=== PATIENT | female | born 1960 | race Caucasian/White ===

== ENCOUNTER 2022-10-20 19:54 | Observation (INO) | payer BC, OTHER ==
[~2022-10-20] VITALS: Ht 157.5 cm; Wt 70.1 kg
[2022-10-20] MEDS ORDERED: TELM1TAB37 PO (20:16)
[2022-10-20] MEDS ORDERED: VIBE1TAB PO (20:16)
[2022-10-20] MEDS ORDERED: METO1TAB32 PO (20:17)
[2022-10-20] MEDS ORDERED: AMLO2.5T3 PO (20:17)
[2022-10-20 20:56] LABS: BASO % 0.3 % (0.0-1.0); EOS # 0.1 10^3/uL (0.0-0.5); EOS % 1.6 % (0.0-3.0); HEMATOCRIT 36.8 % (36.0-47.0); LYMPH % 32.1 % (24.0-44.0); MEAN CORPUSCULAR HGB CONC 32.6 g/dl (32.0-36.5); MEAN CORPUSCULAR VOLUME 98.1 fl (80.0-96.0); MONO # 0.5 10^3/uL (0.0-0.8); MONO % 7.6 % (2.0-8.0); NEUTROPHILS # 3.5 10^3/uL (1.5-8.5); NEUTROPHILS % 57.7 % (36.0-66.0); PLATELET COUNT, AUTOMATED 272 10^3/uL (150-450); RED BLOOD COUNT 3.75 10^6/uL (4.00-5.40); WHITE BLOOD COUNT 6.1 10^3/uL (4.0-10.0)
[2022-10-20 21:04] LABS: LIPASE 43 U/L (12-53)
[2022-10-20 21:06] LABS: ALKALINE PHOSPHATASE 90 U/L (46-116); ALT/SGPT 23 U/L (7.0-40); AST/SGOT 13 U/L (<34); BILIRUBIN,DIRECT < 0.1 MG/DL (<0.4); BILIRUBIN,TOTAL 0.2 MG/DL (0.3-1.2); TOTAL PROTEIN 6.5 G/DL (5.7-8.2)
[2022-10-20] MEDS ORDERED: ONDANSETRON 4MG 2ML VIAL IV ONE ×2 (21:10→22:55)
[2022-10-20] MEDS ORDERED: MORPHINE 2 MG/ML 1ML VIAL IV ONE (21:40)
[2022-10-20] MEDS ORDERED: METOCLOPRAMIDE INJ 10MG/2ML VIAL IV ONE (23:35)
[2022-10-21] VITALS (7 sets, daily range): BP systolic 116–172; BP diastolic 66–87; TEMP 96.8–98.7; O2SAT 94–96
[2022-10-21] MEDS ORDERED: MORPHINE 2 MG/ML 1ML VIAL IV ONE
[2022-10-21] MEDS ORDERED: ONDANSETRON 4MG 2ML VIAL IV PRN ×2 (00:55→17:45)
[2022-10-21] MEDS ORDERED: KETOROLAC 30 MG/ML 1ML VIAL IV PRN ×2 (00:55→06:55)
[2022-10-21] MEDS: NS 1,000 ML IV SCH ×2 (01:33→11:13)
[2022-10-21] MEDS ORDERED: TAMSULOSIN 0.4 MG CAP PO ONE (02:00)
[2022-10-21] MEDS: HYDROMORPHONE HCL 0.5 MG/ 0.5 ML SYRINGE IV PRN ×2 (02:39→06:03)
[2022-10-21] MEDS ORDERED: MED REC IN PROGRESS XX SCH (08:25)
[2022-10-21] MEDS ORDERED: MOME50SP2 (08:52)
[2022-10-21] MEDS ORDERED: CETI10CH PO (08:52)
[2022-10-21] MEDS ORDERED: MONT10TA97 PO (08:52)
[2022-10-21] MEDS ORDERED: AMLO1TAB24 PO (08:52)
[2022-10-21] MEDS ORDERED: VITA100093 PO (08:52)
[2022-10-21] MEDS ORDERED: CALCCAP4 PO (08:52)
[2022-10-21] MEDS ORDERED: [UNRECOGNIZED DRUG - OTHER] SL (08:52)
[2022-10-21] MEDS ORDERED: VALA1TAB5 PO (08:56)
[2022-10-21] MEDS ORDERED: METOPROLOL SUCC *XL* 25MG TAB (TopROL *XL*) PO SCH (09:00)
[2022-10-21] MEDS ORDERED: TELMISARTAN 20 MG TAB PO SCH (09:00)
[2022-10-21] MEDS ORDERED: HOME MED LIST COMPLETE! XX SCH (09:05)
[2022-10-21] MEDS ORDERED: propofoL 200 MG/20 ML VIAL As Ordered ONE (16:03)
[2022-10-21] MEDS ORDERED: MIDAZOLAM INJ 2MG/2ML VIAL As Ordered ONE (16:03)
[2022-10-21] MEDS ORDERED: fentaNYL 100 MCG/2 ML INJECTION As Ordered ONE (16:03)
[2022-10-21] MEDS ORDERED: LIDOCAINE 2% 100MG/5ML SDV (FOR ANES.) As Ordered ONE (16:03)
[2022-10-21] MEDS ORDERED: ONDANSETRON 4MG 2ML VIAL As Ordered ONE (16:04)
[2022-10-21] MEDS ORDERED: ISOVUE-300 61% 100ML VIAL As Ordered ONE (16:11)
[2022-10-21] MEDS ORDERED: ceFAZolin SOD 2 GM in IV 1 EA IV ONE (16:35)
[2022-10-21] MEDS ORDERED: ceFAZolin 2 GM/D5W 50 ML IV BAG As Ordered ONE (16:44)
[2022-10-21] MEDS ORDERED: ePHEDrine SULFATE 25 MG/5 ML(5MG/ML) SYRINGE As Ordered ONE (16:54)
[2022-10-21] MEDS ORDERED: ACETAMINOPHEN 1000MG 100ML IV BAG As Ordered ONE (16:56)
[2022-10-21] MEDS ORDERED: fentaNYL 100 MCG/2 ML INJECTION IV PRN (17:45)
[2022-10-21] MEDS ORDERED: HYDROMORPHONE HCL 0.5 MG/ 0.5 ML SYRINGE IV PRN (17:45)
[2022-10-21] MEDS ORDERED: oxyCODONE 5MG TAB PO PRN (17:45)
[2022-10-21] MEDS ORDERED: oxyBUTYnin 5 MG TAB PO PRN (17:50)
[2022-10-21] MEDS ORDERED: OXYB5TAB10 PO (18:02)
[2022-10-21] MEDS ORDERED: TAMSULOSIN 0.4 MG CAP PO SCH (21:00)
[2022-10-30 00:06] LABS: CA Oxalate Dihy 30 % (.); Ca Ox Monohydrate 65 % (.); Size 5x4 mm (.)
== END 2022-10-21 20:33 | disposition home or self-care (01) ==
LOC: M ED 19:54 → M ED INP 19:55 → M MS5PR 10-21 01:48
PROVIDERS: ADMIT Internal Medicine; ATTEND Internal Medicine Nephrology
DX: N13.2 Hydronephrosis with renal and ureteral calculous obstruction (principal); R10.9 Unspecified abdominal pain; Z87.442 Personal history of urinary calculi; K58.0 Irritable bowel syndrome with diarrhea; I10 Essential (primary) hypertension; Z79.899 Other long term (current) drug therapy
CPT/HCPCS: 52332; 52352; 74176; 76000; 80047; 80076; 81001; 82365; 83690; 85025; 87635; 96374; 96375; 96376; 99284; C1894; C2617; J0131; J0690; J1100; J1170; J1885; J2250; J2405; J2765; J3010; Q9967

== ENCOUNTER → 2023-11-10 | Outpatient (CLI) | payer MEDICARE, BC ==
[~2023-11-10] MED LIST: AMLO1TAB24 PO; AMLO2.5T3 PO; CALCCAP4 PO; CETI10CH PO; METO1TAB32 PO; MOME50SP2; MONT10TA97 PO; OXYB5TAB14 PO; TELM1TAB37 PO; VALA1TAB5 PO; VIBE1TAB PO; VITA100093 PO; [UNRECOGNIZED DRUG - OTHER] SL
== END ==
LOC: M PLAIMG 11:39
PROVIDERS: ATTEND Urology
DX: N20.0 Calculus of kidney (principal)